=== PATIENT | female | born 1985 | race Caucasian/White ===

== ENCOUNTER 2018-08-22 06:26 | Inpatient (IN) | payer OTHER ==
[~2018-08-22] VITALS: Ht 180.3 cm; Wt 68.5 kg
--- NOTE | 2018-08-22 06:33 | NUR ---
Pt bib [id number] for suicidal ideation, on 5150 hold by [employer]. Called Apprentice Architect for need for sitter, no sitter available at this time. [employer] officer at bedside. Will continue to monitor pt. Suicide precautions implemented.
--- NOTE | 2018-08-22 06:58 | NUR ---
Report given to Federico Daniel RN dayshift.
--- NOTE | 2018-08-22 07:01 | NUR ---
RECEIVED SHIFT REPORT FROM WINNIE Turner RN. LEASING SPECIALIST AT BEDSIDE.
[2018-08-22 07:07] LABS: BASOPHILS % (AUTO) 0.8 % (0.0-2.0); EOSINOPHILS # (AUTO) 0.1 K/uL (0.0-0.7); EOSINOPHILS % (AUTO) 2.3 % (0.0-7.0); HEMATOCRIT 32.3 % (31.2-41.9); HEMOGLOBIN 10.6 g/dL (10.9-14.3); LYMPHOCYTES # (AUTO) 2.3 K/uL (20.0-40.0); LYMPHOCYTES % (AUTO) 37.4 % (20.5-51.5); MEAN CORPUSCULAR HEMOGLOBIN 26.4 uug (24.7-32.8); MEAN CORPUSCULAR HGB CONC 33 g/dL (32.3-35.6); MEAN CORPUSCULAR VOLUME 80.3 fL (75.5-95.3); MONOCYTES # (AUTO) 0.6 K/uL (2.0-10.0); NEUTROPHILS # (AUTO) 3.1 K/uL (1.8-8.9); NEUTROPHILS % (AUTO) 49.5 % (38.5-71.5); PLATELET COUNT (AUTO) 240 K/uL (179-408); RED BLOOD CELL COUNT(AUTO) 4.02 MIL/uL (3.63-4.92); WHITE BLOOD COUNT (AUTO) 6.3 K/uL (3.8-11.8)
--- NOTE | 2018-08-22 07:11 | NUR ---
NO SITTER AVAILABLE AT THIS TIME. PT IS UNDER 1:1 OBSERVATION BY ME AT THIS TIME.
[2018-08-22 07:16] LABS: CARBON DIOXIDE 22 mmol/L (21-32); CHLORIDE 107 mmol/L (98-107); CREATININE 0.4 mg/dL (0.6-1.3); GLUCOSE 115 mg/dL (74-106); POTASSIUM 3.7 mmol/L (3.5-5.1); UREA NITROGEN, BLOOD 9 mg/dL (7-18)
[2018-08-22 07:17] LABS: ETHANOL < 3 MG/DL (0-0)
[2018-08-22 07:21] LABS: ACETAMINOPHEN 6.8 ug/mL (10-30); ALANINE AMINOTRANSFERASE 22 U/L (14-59); ALKALINE PHOSPHATASE 64 U/L (50-136); ASPARTATE AMINOTRANSFERASE 14 U/L (15-37); BILIRUBIN,DIRECT 0.1 mg/dL (0.0-0.2); BILIRUBIN,TOTAL 0.3 mg/dL (0.2-1.0); TOTAL PROTEIN, SERUM 6.2 g/dL (6.4-8.2)
[2018-08-22 07:25] LABS: *AMPHETAMINE, URINE POSITIVE (NEGATIVE); *BARBITURATE, URINE NEGATIVE (NEGATIVE); *CANNABINOID, URINE NEGATIVE (NEGATIVE); *COCCAINE, URINE NEGATIVE (NEGATIVE); *OPIATE, URINE NEGATIVE (NEGATIVE); *PHENCYCLIDINE SCREEN,URINE NEGATIVE (NEGATIVE)
[2018-08-22 07:28] LABS: THYROID STIMULATING HORMONE 1.035 mIU/mL (0.358-3.740)
--- NOTE | 2018-08-22 07:37 | NUR ---
HOSPITAL CHEESE GRADER W/ FEMALE CHAPPERONE, ER STAFF, AT BEDSIDE TO CHECK FOR METAL OBJECTS.
--- NOTE | 2018-08-22 07:40 | NUR ---
REGISTRY BILLING DEPARTMENT SUPERVISOR AT BEDSIDE FOR 1:1 SITTER.
[2018-08-22] MEDS ORDERED: MECLIZINE HCL 25 MG TABLET ONE (07:57)
[2018-08-22] MEDS ORDERED: MECLIZINE HCL 25 MG TABLET PO ONE (08:00)
--- NOTE | 2018-08-22 08:04 | NUR ---
PT TAKEN TO RADIOLOGY FOR CT SCAN W/ REGISTRY PAINTER SET SITTER.
--- NOTE | 2018-08-22 08:21 | NUR ---
PT BACK IN ER FROM RADIOLOGY.
--- NOTE | 2018-08-22 08:29 | NUR ---
CALLED GIFTY Ramos CHILD THERAPIST, AND LEFT MESSAGE REQUESTING FOR PSYCH EVAL.
--- NOTE | 2018-08-22 09:07 | NUR ---
RECEIVED CALLBACK FROM GIFTY, FOOD SAFETY DIRECTOR, DUNCAN 1 HOUR.
--- NOTE | 2018-08-22 09:10 | NUR ---
PT PROVIDED W/ FOOD AND WATER.
--- NOTE | 2018-08-22 10:09 | NUR ---
GIFTY Ramos, DESIGN ENGINEERING MANAGER, IN ER FOR PT EVAL.
--- NOTE | 2018-08-22 11:10 | NUR ---
ER SPOKE W/ DR. JOE RE PT'S ADMISSION TO MEDICAL FLOOR.
--- NOTE | 2018-08-22 11:35 | NUR ---
ADMITTING REPORT GIVEN TO MICHAEL ELI.
--- NOTE | 2018-08-22 11:40 | NUR ---
Pt. admitted to TELE 325, under care of Dr. JOE. Belongs List completed
--- NOTE | 2018-08-22 12:00 | NUR ---
Received report from ER nurse, patient calm and cooperative, and very sleepy but arousable. Patient gave history but refused to answer/could not answer if she had a home or where she was before coming to the hospital. Sitter at bedside.
[2018-08-22] MEDS ORDERED: MORPHINE SULFATE 2 MG/1 ML DISP.SYRIN IV PRN (13:15)
[2018-08-22] MEDS ORDERED: ONDANSETRON 4 MG/2 ML VIAL IV PRN (13:15)
[2018-08-22] MEDS ORDERED: TEMAZEPAM 15 MG CAPSULE PO PRN (13:15)
[2018-08-22] MEDS ORDERED: ACETAMINOPHEN 325 MG TABLET PO PRN (13:15)
[2018-08-22 15:11] VITALS: BP 108/65
[2018-08-22] MEDS: IV NS 1000 ML 1,000 ML IV PRN (17:12)
--- NOTE | 2018-08-22 19:38 | NUR ---
Received patient awake and alert, senegalese speaking. Not in any form of distress. Noted complaining of pain at the right forearm IV site, will remove and reinsert IV on the other arm. Patient calm and cooperative at the moment but with sitter at bedside for safety. Will continue to monitor. Noise and lights subdued.
[2018-08-22 20:33] VITALS: BP 108/65
--- NOTE | 2018-08-23 05:52 | NUR ---
Patient slept well throughout the night. No distress noted. With IV access at right hand to ongoing IVF, infusing well. Patient calm and cooperative at the moment, still with sitter at bedside for safety. Attended all needs.
[2018-08-23] MEDS: PANTOPRAZOLE SODIUM 40 MG TABLET.DR PO SCH (06:00)
[2018-08-23 06:44] LABS: BASOPHILS # (AUTO) 0.1 K/uL (0.0-8.0); BASOPHILS % (AUTO) 1.4 % (0.0-2.0); EOSINOPHILS # (AUTO) 0.2 K/uL (0.0-0.7); HEMATOCRIT 31.7 % (31.2-41.9); HEMOGLOBIN 10.5 g/dL (10.9-14.3); LYMPHOCYTES # (AUTO) 2.3 K/uL (20.0-40.0); LYMPHOCYTES % (AUTO) 35.4 % (20.5-51.5); MEAN CORPUSCULAR HEMOGLOBIN 26.6 uug (24.7-32.8); MEAN CORPUSCULAR HGB CONC 33 g/dL (32.3-35.6); MEAN CORPUSCULAR VOLUME 80.4 fL (75.5-95.3); MONOCYTES # (AUTO) 0.7 K/uL (2.0-10.0); MONOCYTES % (AUTO) 10.4 % (0.0-11.0); NEUTROPHILS # (AUTO) 3.2 K/uL (1.8-8.9); NEUTROPHILS % (AUTO) 49.8 % (38.5-71.5); PLATELET COUNT (AUTO) 224 K/uL (179-408); RED BLOOD CELL COUNT(AUTO) 3.94 MIL/uL (3.63-4.92); WHITE BLOOD COUNT (AUTO) 6.4 K/uL (3.8-11.8)
[2018-08-23 06:56] LABS: IRON, SERUM 28 ug/dL (50-175)
[2018-08-23 07:25] LABS: ALANINE AMINOTRANSFERASE 20 U/L (14-59); ALKALINE PHOSPHATASE 56 U/L (50-136); ASPARTATE AMINOTRANSFERASE 6 U/L (15-37); BILIRUBIN,TOTAL 0.2 mg/dL (0.2-1.0); CARBON DIOXIDE 23 mmol/L (21-32); CHLORIDE 109 mmol/L (98-107); CREATININE 0.5 mg/dL (0.6-1.3); GLUCOSE 101 mg/dL (74-106); MAGNESIUM 1.7 mg/dL (1.8-2.4); PHOSPHOROUS 2.4 mg/dL (2.5-4.9); POTASSIUM 3.5 mmol/L (3.5-5.1); TOTAL PROTEIN, SERUM 5.7 g/dL (6.4-8.2); UREA NITROGEN, BLOOD 3 mg/dL (7-18)
[2018-08-23 08:26] LABS: THYROID STIMULATING HORMONE 0.364 mIU/mL (0.358-3.740)
[2018-08-23] MEDS: IV NS 1000 ML 1,000 ML IV PRN (08:40)
--- NOTE | 2018-08-23 09:30 | NUR ---
IN ROOM WITH A SITTER OBSERVING HER FOR SAFETY PATIENT STATED THAT SOMETIMES SHE FEELS LIKE KILLING HER SELF STATED SHE AT ONE TIME JUMPED OUT OF A MOVING CARE STATED SHE IS TIRED OF THE TYPE OF LIFE THAT SHE IS LIVING WANTS A CHANGE.
[2018-08-23] MEDS ORDERED: MAGNESIUM OXIDE 400 MG TABLET PO ONE (10:00)
--- NOTE | 2018-08-23 10:00 | NUR ---
MAG LEVEL IS 1.7 AND PHOS IS 2.[address] JOE WITH REPLACEMENT ORDERS AND NOTED.
--- NOTE | 2018-08-23 10:30 | NUR ---
POOR VEINS MULTIPLE ATTEMPTS DR JOE NOTIFIED WITH ORDER TO INSERT A MIDLINE STATOR CONNECTOR AWARE STATED WILL CALL THE PICC LINE TEAM.
--- NOTE | 2018-08-23 10:45 | NUR ---
SPOKE WITH THE CINEMA OPERATOR RE PATIENTS CONDITION HOMELESSNESS NO FAMILY WANTS ASSISTANCE STATED OKAY WILL SEE PATIENT.
[2018-08-23] MEDS: CYANOCOBALAMIN 1,000 MCG TABLET PO SCH (11:49)
[2018-08-23] MEDS: POTASSIUM PHOSPHATE MM 5 MMOL in IV DEXTROSE 5% 100 ML IV SCH ×2 (11:59→14:06)
[2018-08-23 12:00] VITALS: BP 117/69
--- NOTE | 2018-08-23 12:00 | NUR ---
MID LINE INSERTED TO HER RIGHT UPPER ARM GAUGE 18 AND KPHOS PIGGY BACK STARTED ORDERED AT THIS TIME.
--- NOTE | 2018-08-23 13:21 | NUR ---
DR العلي HERE AND SEEN PATIENT WITH NEW ORDERS AND NOTED.
[2018-08-23 16:00] VITALS: BP 106/67
--- NOTE | 2018-08-23 18:26 | NUR ---
MEDICATED FOR C/O ABDOMINAL PAIN ORDERED MADE COMFORTABLE STILL DEPRESSED BUT DID NOT VERBALISE SUICIDAL THOUGHTS AT THIS TIME. Addendum: 08/23/18 at 1828 by ALONDRA KEENAN RN ERROR WRONG PATIENT WRONG ENTRY
--- NOTE | 2018-08-23 18:28 | NUR ---
PATIENT IS RESTING AT THIS TIME AND DID NOT VERBALISE SUICIDAL THOUGHTS REMAIN ON HOLD ORDERED MADE COMFORTABLE AND WILL CONTINUE TO OBSERVE.
--- NOTE | 2018-08-23 19:41 | NUR ---
Received patient awake and alert, tongan speaking. Not in any form of distress. Noted patient now has a right upper arm midline to ongoing IVF, infusing well. Patient calm and cooperative at the moment but with sitter at bedside for safety. Will continue to monitor. Noise and lights subdued.
[2018-08-23 20:00] VITALS: BP 106/67
[2018-08-23] MEDS: FERROUS SULFATE 325 MG TABEC PO SCH (20:07)
[2018-08-23] MEDS: ARIPIPRAZOLE 5 MG TABLET PO SCH (20:07)
[2018-08-24] MEDS: IV NS 1000 ML 1,000 ML IV PRN ×2 (01:16→14:32)
[2018-08-24] MEDS: PANTOPRAZOLE SODIUM 40 MG TABLET.DR PO SCH (06:00)
[2018-08-24 06:04] VITALS: BP 121/81
--- NOTE | 2018-08-24 07:30 | NUR ---
AWAKE ALERT BUT WITH LANGUAGE BARRIER BUT SEEMS DEPRESSED HAS A SITTER FOR SAFETY PATIENT HAS VOICED SUICIDAL INTENT REMAIN ON IVF ORDERED MID LINE RIGHT UPPER ARM REMAINS INTACT WITH NO S/S OF INFILTERATION ON SITE MADE COMFORTABLE WILL CONTINUE TO PROVIDE SAFE AND THERAPEUTIC ENVIRONMENT AT ALL TIMES.
[2018-08-24] MEDS: CYANOCOBALAMIN 1,000 MCG TABLET PO SCH (08:12)
[2018-08-24] MEDS: FERROUS SULFATE 325 MG TABEC PO SCH ×2 (08:12→20:33)
[2018-08-24 08:18] VITALS: BP 123/78
--- NOTE | 2018-08-24 10:40 | NUR ---
UP INTO THE SHOWER ROOM ASSISTED WITH SHOWERING BY THE SITTER AND BACK TO HER ROOM RESTING COMFORTABLY AT THIS TIME DENIES DISCOMFORTS.
[2018-08-24 12:00] VITALS: BP 109/60
[2018-08-24 16:15] VITALS: BP 107/62
--- NOTE | 2018-08-24 17:21 | NUR ---
PER MANUFACTURING PLANNER DR LESTER CALLED AND DISCONTINUED THE 5150 HOLD ORDERED.
[2018-08-24] MEDS: ARIPIPRAZOLE 5 MG TABLET PO SCH (20:33)
[2018-08-24 20:34] VITALS: BP 107/73
[2018-08-25] MEDS: IV NS 1000 ML 1,000 ML IV PRN (03:25)
[2018-08-25] MEDS: PANTOPRAZOLE SODIUM 40 MG TABLET.DR PO SCH (06:20)
[2018-08-25 06:23] VITALS: BP 120/62
--- NOTE | 2018-08-25 06:34 | NUR ---
PATIENT ASLEEP IN BED. SLEPT WELL THROUGHOUT THE NIGHT. VSS. IVF INFUSING WELL. CALL LIGHT IN REACH. ALL NEEDS ATTENDED. WILL CONTINUE TO MONITOR.
--- NOTE | 2018-08-25 06:54 | NUR ---
INFORMATION SENT: KEATON,UR-08/24,PROGRESS NOTES 4-1 INSURANCE NAME: [facility] FAX NUMBER: [phone] FAX SENT
--- NOTE | 2018-08-25 07:46 | NUR ---
RECEIVED PATIENT IN BED QUIET COOPERATIVE AND COMPLIANT WITH CARE AND MEDICATIONS AT THIS TIME.CALL LIGHTS AND PERSONAL BELONGINGS WITHIN EASY REACH SAFE AND THERAPEUTIC BELONGINGS ARE WITHIN EASY REACH MADE COMFORTABLE D/C PLANNING AWAITING FOR PROVIDER TO SEE PATIENT.
[2018-08-25] MEDS: FERROUS SULFATE 325 MG TABEC PO SCH (08:19)
[2018-08-25] MEDS: CYANOCOBALAMIN 1,000 MCG TABLET PO SCH (08:19)
[2018-08-25 11:12] VITALS: BP 105/57
[2018-08-25] MEDS ORDERED: FERR325T28 PO (12:07)
[2018-08-25] MEDS ORDERED: CYAN10009 PO (12:07)
[2018-08-25] MEDS ORDERED: ARIP5TAB10 PO (12:07)
--- NOTE | 2018-08-25 12:13 | NUR ---
ORDER NOTED TO DISCHARGE PATIENT TODAY NOTED WILL CONFIRM WITH THE CERTIFIED BENCH JEWELER TECHNICIAN GRINDING ROOM SUPERVISOR TO WHERE PATIENT WILL BE DISCHARGED TO.
[2018-08-25 15:02] VITALS: BP 123/77
--- NOTE | 2018-08-25 16:00 | NUR ---
PER THE [employer] SUPERVISOR UNABLE TO FIND PLACEMENT AT THE HALFWAY FOR THE PATIENT BUT PATIENT WANTS TO BE DISCHARGED STATED WILL FIND HER OWN PLACE TO GO [place].
--- NOTE | 2018-08-25 16:30 | NUR ---
PATIENT DISCHARGED MID LINE REMOVED AND PRESSURE APPLIED PATIENT INSTRUCTED TO FOLLOW UP WITH HER PRIMARY DOCTOR PATIENT DENIES SUICIDAL OR HOMOCIDAL IDEATION AT THIS TIME.DISCHARGED WITH ALL OF HIS PERSONAL BELONGINGS.
--- NOTE | 2018-08-26 07:26 | NUR ---
INFORMATION SENT: FACESHEET,DISCHARGE SUMMARY INSURANCE NAME: [facility] FAX NUMBER: [phone] FAX SENT
== END 2018-08-25 16:45 | disposition home or self-care (01) | DRG 917 ==
LOC: ER 06:26 → TELE3 11:52 → MEDSURG3 08-23 11:35
PROVIDERS: ADMIT Internal Medicine; ATTEND Internal Medicine
DX: T43.621A Poisoning by amphetamines, accidental (unintentional), initial encounter (principal); G92 Toxic encephalopathy; E43 Unspecified severe protein-calorie malnutrition; R45.851 Suicidal ideations; K92.2 Gastrointestinal hemorrhage, unspecified; F15.10 Other stimulant abuse, uncomplicated; Z59.0 Homelessness; Z56.0 Unemployment, unspecified; E87.6 Hypokalemia; D50.9 Iron deficiency anemia, unspecified; Z68.21 Body mass index [BMI] 21.0-21.9, adult; E87.8 Other disorders of electrolyte and fluid balance, not elsewhere classified; F32.9 Major depressive disorder, single episode, unspecified; Y92.59 Other trade areas as the place of occurrence of the external cause
CPT/HCPCS: 36415; 36569; 70030-TC; 70450; 71045; 80307; 83550; 83690; 83735; 84100; 84443; 85025; 93005; A4663; G0378; G0480; G0480-TC; J3490; J7030; J7060; J8597